=== PATIENT | male | born 1965 | race Caucasian/White ===

== ENCOUNTER 2018-11-03 06:28 | Day surgery (SDC) | payer OTHER ==
[2018-10-31 09:08] VITALS: BMI 27.3
[2018-11-03 07:12] VITALS: TEMP 98
[2018-11-03] MEDS ORDERED: MIDAZOLAM HCL 2 MG/2 ML SINGLE DOSE VIAL ONE (07:46)
[2018-11-03] MEDS ORDERED: LIDOCAINE HCL/PF 2% SDV 5ML VIAL ONE (07:46)
[2018-11-03] MEDS ORDERED: PROPOFOL 20 ML ONE ×2 (07:46)
--- NOTE | 2018-11-03 09:11 | OP ---
Operative Note - Note: Operative Date: 11/03/18 Pre-Operative Diagnosis: Left renal stone Operation: Left ESWL Findings: 5 mm mid pole renal stone Post-Operative Diagnosis: Same as Pre-op Surgeon: Miguel Chavez Anesthesia: Fractional Estimated Blood Loss (mls): 0 Operative Report Dictated: Yes
[2018-11-03 09:44] VITALS: BP 131/78; PULSE 50
--- NOTE | 2018-11-04 07:14 | OP ---
DATE OF OPERATION: 11/03/2018 PREOPERATIVE DIAGNOSIS: Left renal stone. POSTOPERATIVE DIAGNOSIS: Left renal stone. PROCEDURE: Left extracorporeal shock wave lithotripsy. ATTENDING: Jonas Camp MD ANESTHESIA: Fractional. OPERATION WENT FOLLOWS: The patient was brought in the operating room, placed in supine position on the operating room table. Ultrasonography and fluoroscopy were then performed. A 5-mm left mid pole stone was identified. Anesthesia and preoperative antibiotics were then administered. Shock wave lithotripsy was then performed. There were no complications noted. The stone fragmented well under real time ultrasonography and fluoroscopy. The disposition of the patient was to the recovery room. JONAS CAMP M.D. /[id number]
== END 2018-11-03 11:46 | disposition home or self-care (01) ==
LOC: JASU-SURG 06:28
PROVIDERS: ATTEND Urology
PROC: 0TF4XZZ Fragmentation in Left Kidney Pelvis, External Approach (ICD-10-PCS; principal; 2018-11-03 08:00)
DX: N20.0 Calculus of kidney (principal)

== ENCOUNTER 2019-12-14 04:21 | Day surgery (SDC) | payer OTHER ==
[2019-12-11 09:11] VITALS: BMI 26.2
[2019-12-14] MEDS ORDERED: oxyCODONE HCL 5 MG TABLET PO PRN (10:57)
[2019-12-14] MEDS ORDERED: ACETAMINOPHEN 325 MG TABLET (FP) PO PRN (10:57)
[2019-12-14] MEDS ORDERED: ONDANSETRON 4 MG/2 ML VIAL IVPUSH PRN (10:57)
[2019-12-14] MEDS ORDERED: LACTATED RINGERS SOLUTION 1,000 ML IV SCH (11:00)
--- NOTE | 2019-12-14 11:18 | OP ---
Operative Note - Note: Operative Date: 12/14/19 Pre-Operative Diagnosis: Left renal stone Operation: Left ESWL Findings: 7 mm mid pole renal stone Post-Operative Diagnosis: Same as Pre-op Surgeon: Miguel Chavez Anesthesia: Regional Estimated Blood Loss (mls): 0 Operative Report Dictated: Yes
[2019-12-14 11:34] VITALS: BP 131/74; PULSE 55; TEMP 96.8
--- NOTE | 2019-12-14 16:32 | OP ---
DATE OF OPERATION: 12/14/2019 PREOPERATIVE DIAGNOSIS: Left renal stone. POSTOPERATIVE DIAGNOSIS: Left renal stone. PROCEDURE: Left extracorporeal shockwave lithotripsy. ATTENDING: Jonas Chavez M.D. ANESTHESIA: Fractional. DESCRIPTION OF PROCEDURE: Patient was brought in the operating room, placed in a supine position on the operating room table. Ultrasonography and fluoroscopy were performed. A left 7-mm mid pole stone was identified. At this point, anesthesia and preoperative antibiotics were then administered. Shockwave lithotripsy was then performed. 2500 impulses at 17 joules of power were administered to the stone with excellent fragmentation noted under realtime ultrasonography and fluoroscopy. The patient tolerated the procedure very well. JONAS CAMP M.D. [id number]
== END 2019-12-14 11:30 | disposition home or self-care (01) ==
LOC: JASU-SURG 04:21
PROVIDERS: ATTEND Urology
PROC: 0TF4XZZ Fragmentation in Left Kidney Pelvis, External Approach (ICD-10-PCS; principal; 2019-12-14 10:11)
DX: N20.0 Calculus of kidney (principal)

== ENCOUNTER 2022-05-30 17:18 | Emergency (ER) | payer OTHER ==
[2022-05-30 17:41] VITALS: BP 123/71; PULSE 71; RESP 18; TEMP 98; BMI 25.7
== END 2022-05-30 18:49 | disposition home or self-care (01) ==
LOC: JERFT 17:18 → JER 17:18 → JERFT 18:49
PROC: 0HQGXZZ Repair Left Hand Skin, External Approach (ICD-10-PCS; principal; 2022-05-30)
DX: S61.102A Unspecified open wound of left thumb with damage to nail, initial encounter (principal); W26.8XXA Contact with other sharp object(s), not elsewhere classified, initial encounter
CPT/HCPCS: 99282-25

== ENCOUNTER 2022-06-19 12:02 | Emergency (ER) | payer OTHER ==
[2022-06-19 12:13] VITALS: BP 140/44; PULSE 50; RESP 16; TEMP 97.2; BMI 26.4
== END 2022-06-19 12:26 | disposition home or self-care (01) ==
LOC: JERFT 12:02 → JER 12:02 → JERFT 12:26
DX: S61.012A Laceration without foreign body of left thumb without damage to nail, initial encounter (principal); Y99.9 Unspecified external cause status; Z48.02 Encounter for removal of sutures
CPT/HCPCS: 99281-25